=== PATIENT | male | born 1945 | race Caucasian/White ===

== ENCOUNTER → 2019-05-28 | Outpatient (CLI) | payer MEDICARE ==
--- NOTE | 2019-05-28 08:43 | PCVCIMAG ---
EXAM: BILATERAL CAROTID DUPLEX INDICATION: Carotid Occlusive Disease. FINDINGS: Doppler Measurements (centimeters per second): RIGHT: Peak CCA-89, Peak ECA-61, Diastolic ICA-25, Peak ICA-68, ICA/CCA Ratio-0.8. LEFT: Peak CCA-101, Peak ECA-59, Diastolic ICA-21, Peak ICA-61, ICA/CCA Ratio-0.6. RIGHT CAROTID: The carotid bulb has mild plaque. The proximal internal carotid artery shows <40% stenosis. The common carotid artery shows no significant stenosis. The external carotid artery shows no significant stenosis. LEFT CAROTID: The carotid bulb has mild plaque. The proximal internal carotid artery shows <40% stenosis. The common carotid artery shows no significant stenosis. The external carotid artery shows no significant stenosis. Antegrade flow in both vertebral arteries. IMPRESSION: <40% stenosis of the right internal carotid artery with mild plaque. <40% stenosis of the left internal carotid artery with mild plaque. LOC:[place] [id number]
--- NOTE | 2019-05-28 08:44 | PCVCIMAG ---
EXAM: AORTOILIAC DUPLEX INDICATION: Peripheral arterial disease. Previous right iliac stents. FINDINGS: AORTA: Suprarenal aorta measures maximum diameter of 2.7 cm. There is not a fusiform infrarenal aortic aneurysm. The infrarenal aorta measures maximum diameter of 2.1 cm. No aortic stenosis. RIGHT COMMON ILIAC ARTERY: Maximum diameter is 1.5 cm. No significant stenosis. RIGHT EXTERNAL ILIAC ARTERY: No significant stenosis. LEFT COMMON ILIAC ARTERY: Maximum diameter is 1.6 cm. No significant stenosis. LEFT EXTERNAL ILIAC ARTERY: No significant stenosis. IMPRESSION: No abdominal aortic aneurysm. No aortoiliac stenosis seen. Previous right common and external iliac artery stents maintaining satisfactory patency. LOC:[place] [id number]
--- NOTE | 2019-05-28 08:46 | PCVCIMAG ---
EXAM: NONINVASIVE ARTERIAL EXAMINATION OF BOTH LOWER EXTREMITIES INCLUDING PRE AND POST EXERCISE PRESSURE MEASUREMENTS AND DOPPLER WAVEFORMS INDICATION: Peripheral Arterial Disease. Leg pain. FINDINGS: Right Brachial: 130 mm Hg. Right Dorsalis Pedis: 158 mm Hg. Right Posterior Tibial: 152 mm Hg. Right TOMASA = 1.22. Left Brachial: 128 mm Hg. Left Dorsalis Pedis: 162 mm Hg. Left Posterior Tibial: 116 mm Hg. Left TOMASA = 1.25. Post Exercise: Right Brachial 160 mm Hg. Right Dorsalis Pedis: 158 mm Hg. Left Dorsalis Pedis: 173 mm Hg. Right TOMASA = 0.99. Left TOMASA = 1.08. IMPRESSION: No resting ischemia in the right lower extremity. No exercise induced ischemia in the right lower extremity. No resting ischemia in the left lower extremity. No exercise induced ischemia in the left lower extremity. LOC:[id number]
== END | disposition home or self-care (01) ==
LOC: PCVCIMAG 07:34
PROVIDERS: ATTEND Nuclear Medicine Nuclear Cardiology
DX: I65.23 Occlusion and stenosis of bilateral carotid arteries (principal); R09.89 Other specified symptoms and signs involving the circulatory and respiratory systems; I73.9 Peripheral vascular disease, unspecified; M79.604 Pain in right leg; M79.605 Pain in left leg; E78.00 Pure hypercholesterolemia, unspecified; I25.2 Old myocardial infarction; Z88.8 Allergy status to other drugs, medicaments and biological substances; Z87.891 Personal history of nicotine dependence
CPT/HCPCS: 93880; 93924; 93978

== ENCOUNTER → 2019-06-07 | Outpatient (CLI) | payer MEDICARE | END | disposition home or self-care (01) | LOC: PCVCCLINIC 09:50 | PROVIDERS: ATTEND Nuclear Medicine Nuclear Cardiology | DX: I25.10 Atherosclerotic heart disease of native coronary artery without angina pectoris (principal); I73.9 Peripheral vascular disease, unspecified; I65.21 Occlusion and stenosis of right carotid artery; I10 Essential (primary) hypertension; E78.00 Pure hypercholesterolemia, unspecified; I77.72 Dissection of iliac artery; Z79.82 Long term (current) use of aspirin; Z87.891 Personal history of nicotine dependence | CPT/HCPCS: G0463 ==

== ENCOUNTER → 2019-06-28 | Outpatient (CLI) | payer MEDICARE | END | disposition home or self-care (01) | LOC: PCVCCLINIC 08:00 | PROVIDERS: ATTEND Internal Medicine Cardiovascular Disease | DX: I25.10 Atherosclerotic heart disease of native coronary artery without angina pectoris (principal); E78.00 Pure hypercholesterolemia, unspecified; I10 Essential (primary) hypertension; I73.9 Peripheral vascular disease, unspecified; Z88.8 Allergy status to other drugs, medicaments and biological substances | CPT/HCPCS: 36415; 80061; 85610 ==

== ENCOUNTER → 2019-08-07 | Outpatient (CLI) | payer MEDICARE ==
--- NOTE | 2019-08-07 11:10 | PCVCIMAG ---
APPROVED REPORT Study performed: 08/07/2019 10:06:04 EXAM: Comprehensive 2D, Doppler, and color-flow Echocardiogram Patient Location: Echo lab Room #: 2Status: routine BSA: 2.34 HR: 80 bpmBP: 134/84 mmHg Rhythm: NSR Risk Factors: Cardiac Risk Factors: HTN, Hyperlipidemia Indications CAD Hypertension/HDD PAD 2D Dimensions IVSd: 9.72 (7-11mm)LVOT Diam: 20.54 (18-24mm) LVDd: 39.90 mm PWd: 6.99 (7-11mm)Ascending Ao: 40.70 (22-36mm) LVDs: 28.66 (25-40mm) Left Atrium: 33.43 (27-40mm) Aortic Root: 35.41 mm LV Single Plane 4CH: 54.76 % LV Single Plane 2CH: 53.99 % Biplane EF: 53.6 % Volumes Left Atrial Volume (Systole) Single Plane 4CH: 62.83 mLSingle Plane 2CH: 41.80 mL Biplane LA Volume: 53.00 mLLA ESV Index: 22.00 mL/m2 Aortic Valve AoV Peak [place].: 1.47 m/s AO Peak Gr.: 8.65 mmHgLVOT Max P.85 mmHg LVOT Max V: 0.84 m/s DIPESH Vmax: 1.90 cm2 AI Vmax: 1.61 m/s AI [place]: 0.49 m/s2 AI PHT: 960.00 ms Mitral Valve E/A Ratio: 0.8 MV Decel. Time: 190.93 ms MV E Max [place].: 0.57 m/s MV A [place].: 0.71 m/s IVRT: 86.51 ms TDI E/Lateral E': 7.13E/Medial E': 6.33 Medial E' [place].: 0.09 m/s Lateral E' [place].: 0.08 m/s Pulmonary Valve PV Peak [place].: 0.93 m/sPV Peak Gr.: 3.44 mmHg Pulmonary Vein P Vein S: 0.62 m/sP Vein A: 0.35 m/s P Vein D: 0.26 m/sP Vein A Dur.: 86.5 msec P Vein S/D Ratio: 2.38 Tricuspid Valve TR Peak [place].: 1.41 m/s TR Peak Gr.: 7.92 mmHg TV Vmax: 0.52 m/sPA Pressure: 15.00 mmHg Left Ventricle The left ventricle is normal size. There is normal LV segmental wall motion. There is normal left ventricular wall thickness. Left ventricular systolic function is normal. The left ventricular ejection fraction is within the normal range. LVEF is 50-55%. Grade I - abnormal relaxation pattern. Right Ventricle The right ventricle is normal size. The right ventricular systolic function is normal. Atria The left atrium size is normal. The right atrium size is normal. Aortic Valve Aortic valve is trileaflet. Mild aortic valve sclerosis. Mild aortic regurgitation. There is no aortic valvular stenosis. Mitral Valve The mitral valve is normal in structure. There is no mitral valve regurgitation noted. No evidence of mitral valve stenosis. Tricuspid Valve The tricuspid valve is normal in structure. Trace tricuspid regurgitation. No pulmonary hypertension. Pulmonic Valve The pulmonary valve is normal in structure. There is no pulmonic valvular regurgitation. Great Vessels The aortic root is normal in size. Ascending aorta is mildly dilated. Aortic arch is normal in caliber. IVC is normal in size and collapses >50% with inspiration. Pericardium There is no pericardial effusion. There is no pleural effusion. <Conclusion> The left ventricle is normal size. There is normal left ventricular wall thickness. Left ventricular systolic function is normal. Grade I - abnormal relaxation pattern. The right ventricle is normal size. The left atrium size is normal. Mild aortic valve sclerosis. The mitral valve is normal in structure. Trace tricuspid regurgitation.
== END | disposition home or self-care (01) ==
LOC: PCVCIMAG 10:13
PROVIDERS: ATTEND Internal Medicine Cardiovascular Disease
DX: I35.0 Nonrheumatic aortic (valve) stenosis (principal); I25.10 Atherosclerotic heart disease of native coronary artery without angina pectoris; I10 Essential (primary) hypertension; I25.2 Old myocardial infarction; E78.00 Pure hypercholesterolemia, unspecified; Z87.891 Personal history of nicotine dependence
CPT/HCPCS: 93005; 93306; G0463